=== PATIENT | male | born 1935 | race Caucasian/White ===

== ENCOUNTER 2020-01-10 09:46 | Emergency (ER) | payer MEDICARE, SELFPAY ==
--- NOTE | 2020-01-10 10:21 | ED.GENADULT ---
HPI - General Adult General Chief complaint: Urogenital-Male Stated complaint: blood in urine, occasional back pain Source: patient Mode of arrival: ambulatory Limitations: no limitations History of Present Illness HPI narrative: Dark blood in urine since 7 AM. Denies abdominal pain, dysuria, urinary frequency, dribbling. Urinary stream is forceful at times, no change. Gradual wt. loss over the past 2 years, no recent change. No hx of bruising. Takes clopidogrel daily. Recurrent right flank pain, occurs about 3 AM for the last 3-4 weeks. Gone throughout the day. Denies dysuria, urgency, frequency. No hx of kidney stones. Related Data Home Medications Medication Instructions Recorded Confirmed aspirin [Adult Low Dose Aspirin] 81 mg PO DAILY 01/10/20 01/10/20 atorvastatin 40 mg PO HS 01/10/20 01/10/20 clopidogrel 75 mg PO DAILY 01/10/20 01/10/20 coQ10 (ubiquinol) 200 mg PO DAILY 01/10/20 01/10/20 losartan 25 mg PO HS 01/10/20 01/10/20 omeprazole 20 mg PO DAILY 01/10/20 01/10/20 Allergies Allergy/AdvReac Type Severity Reaction Status Date / Time No Known Allergies Allergy Verified 01/10/20 10:30 Review of Systems Constitutional: Constitutional: Denies chills, Denies fever(s) and Denies weakness ENT: Reports sore throat Comments: no dysphagia Cardiovascular: Cardiovascular: Denies chest pain, Denies rapid heart rate and Denies slow heart rate Respiratory: Respiratory: Denies cough and Denies dyspnea Gastrointestinal: Gastrointestinal: Denies abdominal pain, Denies nausea and Denies vomiting Comments: Stools have had a weird appearance at times this past week. No melena. 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 Resolves. with rest. Endocrine: Endocrine: Denies polyuria Hematologic/Lymphatic: Hematologic/Lymphatic: Denies easy bleeding PMFSH Past Medical History Medical History (Updated 01/10/20 @ 11:38 by Tayo Gamino MD) GERD (gastroesophageal reflux disease) Hypertension Myocardial infarction Social History Social History Smoking status: Never smoker Gender identity (if verbalized by the patient): Female Exam Const: General: healthy appearing Orientation/consciousness: patient oriented x3 Limitations: no limitations HENMT: Head: normal to inspection Mouth: Yes Normal oral and palatal mucosa present Throat: posterior oropharynx normal Eyes: EOM: EOMs intact bilaterally Neck: Neck: no lymphadenopathy Chest: Chest palpation & inspection: normal inspection of the chest Resp: Auscultation: clear to auscultation bilaterally Cardio: Rhythm: regular rhythm GI: GI Palp: No Tenderness to palpation present (GI), No Guarding due to palpation present (GI), No Rigid due to palpation and No Palpable mass present Rectal Exam: No fecal impaction and hemorrhoids Other: : General: No bladder normal to palpation and Yes no CVA tenderness Testes: epididymides normal, no testicular swelling and no testicular tenderness Other: Prostate is symmetrically enlarged, smooth, no masses. Back/Spine/Pelvis: Back: no CVA tenderness Other: Points to left lateral flank where pain occurs, non-tender on exam. Skin: Rashes: no rashes Neuro: General: patient oriented x3 Extrem: General: normal to inspection Course Course Emergency Course: UTI with hematuria, on clopidogrel. In view of gross hematuria I'm concerned about persistent bleeding. Therefore, stop clopidogral until blood in urine resolves. See instructions. Losartan + Bactrim can interact, causing hyperkalemia. Pt's K is normal with adequate GFR. Will tx with Bactrim x 7 days. Vital Signs Vital signs: Vital Signs Temperature 36.7 C
[2020-01-10 10:22] VITALS: BP 111/65; PULSE 58; RESP 22; TEMP 36.7; O2SAT 100
--- NOTE | 2020-01-10 10:51 | PC.NURSE ---
Report to OLIVA Li
[2020-01-10 10:53] LABS: Basophils Absolute Auto 0.04 K/mm3 (0.00-0.10); Basophils Percent Auto 0.9 % (0.0-1.0); Eosinophils Percent Auto 4.3 % (1.0-6.0); Hematocrit 41.8 % (37.0-46.0); Hemoglobin 13.8 g/dL (12.4-15.3); Lymphocytes Absolute Auto 1.22 K/mm3 (1.10-4.50); Lymphocytes Percent Auto 26.1 % (18.0-42.0); Mean Corpuscular Hemoglobin 29.9 pg (27.0-31.0); Mean Corpuscular Volume 90.7 fL (78.0-102.0); Monocytes Absolute Auto 0.49 K/mm3 (0.10-0.90); Monocytes Percent Auto 10.5 % (2.0-11.0); Neutrophils Absolute Auto 2.7 K/mm3 (1.7-7.2); Neutrophils Percent Auto 58.2 % (50.0-70.0); Platelet Count Result 186 K/mm3 (150-420); Red Blood Count 4.61 M/mm3 (4.70-6.10); Red Cell Distribution Width 13.4 % (11.6-14.4); White Blood Count 4.7 K/mm3 (4.8-10.8)
[2020-01-10 10:56] LABS: Add Urine Microscopic? YES; Appearance Urine Cloudy (Clear); Bilirubin Urine 1+ (Negative); Blood Urine 3+ (Negative); Color Urine Red (Yellow); Glucose Urine UA Trace (Negative); Ketones Urine 1+ (Negative); Leukocyte Esterase Ur 2+ (Negative); Nitrate Urine Positive (Negative); Protein Urine 3+ (Negative); Urobilinogen Urine >=8.0 mg/dL (0.2-1.0); pH Urine 6.5 (5.0-8.0)
[2020-01-10 11:03] LABS: Bacteria Urine 1+ /hpf; RBC Urine >75 /hpf (0-2); WBC Urine 21-30 /hpf (0-3)
--- NOTE | 2020-01-10 11:04 | PC.NURSE ---
PT. RESTING ON STREACHER. APPEARS IN NO DISTRESS.
[2020-01-10 11:05] LABS: Prothrombin Time 10.7 Seconds (9.64-11.0)
[2020-01-10 11:14] LABS: Alanine Aminotransferase 22 U/L (16-63); Albumin Level 3.6 g/dL (3.4-5.0); Alkaline Phosphatase 88 U/L (46-116); Anion Gap 10.5 mmol/L (7-16); Aspartate Amino Transferase 22 U/L (15-37); Bilirubin,Total 0.7 mg/dL (0.00-1.00); Blood Urea Nitrogen 27 mg/dL (7-18); Calcium 8.4 mg/dL (8.5-10.1); Carbon Dioxide 28 mmol/L (21-32); Chloride 109 mmol/L (98-108); Estimated CRCL calculation 29 ml/min; Estimated Glomerular Filt Rate 42; Glucose 95 mg/dL (70-99); Osmolality Calculated 301 mOsm/kg (285-295); Potassium 4.5 mmol/L (3.5-5.1); Sodium 143 mmol/L (136-145); Total Protein 6.9 g/dL (6.4-8.2)
[2020-01-10 11:36] VITALS: BP 129/74; PULSE 53; RESP 18; O2SAT 97
[2020-01-10 11:40] VITALS: BP 159/79; PULSE 74; RESP 18; TEMP 36.8; O2SAT 96
== END 2020-01-10 11:38 | disposition home or self-care (01) ==
PROVIDERS: Emergency Provider Family Medicine; PCP Family Medicine
DX: N30.01 Acute cystitis with hematuria (principal); K21.9 Gastro-esophageal reflux disease without esophagitis; I10 Essential (primary) hypertension
CPT/HCPCS: 36415; 80053; 81001; 85025; 85610; 99283

== ENCOUNTER 2020-01-12 14:59 | Outpatient (CLI) | payer MEDICARE, SELFPAY ==
[2020-01-12 15:30] LABS: Add Urine Microscopic? NO; Appearance Urine Clear (Clear); Bilirubin Urine Negative (Negative); Blood Urine Negative (Negative); Color Urine Yellow (Yellow); Glucose Urine UA Negative (Negative); Ketones Urine Negative (Negative); Leukocyte Esterase Ur Negative (Negative); Nitrate Urine Negative (Negative); Protein Urine Negative (Negative); Specific Grav Ur 1.015 (1.010-1.020); Urobilinogen Urine 0.2 mg/dL (0.2-1.0); pH Urine 5.5 (5.0-8.0)
== END 2020-01-12 15:00 | disposition home or self-care (01) ==
LOC: CHSLAB 15:01
PROVIDERS: PCP Family Medicine; Visit Provider Family Medicine
DX: N30.91 Cystitis, unspecified with hematuria (principal)
CPT/HCPCS: 81003

== ENCOUNTER 2021-01-04 18:31 | Emergency (ER) | payer MEDICARE, SELFPAY ==
--- NOTE | ~2021-01-04 | CT_ITS ---
EXAMINATION: CTA brain carotid EXAM DATE: 01/04/2021 21:21 INDICATION: TIA? Dysphasia, confusion, increased forgetfulness. TECHNIQUE: Spiral CTA of the carotid arteries was performed with intravenous injection 100 cc of Om nipaque 350. Axial, coronal, sagittal reformatted images reviewed. Additional reformatted images cre ated on dedicated 3-D workstation. NASCET comparable standard used to assess the degree of arterial stenosis. Spiral CT angiogram cerebral arteries performed with the same intravenous injection of con trast. Source images of the brain CTA transferred to dedicated workstation for 3-D rotational image c reation. Coronal, sagittal maximum intensity pixel images also reviewed. The dose-length product (D LP) for this examination was 656.56 mGy-cm. The exposure was tailored according to patient size, an d iterative reconstruction (ASIR) was used as additional dose reduction technique. Correlation is mad e to noncontrast head CT earlier same date. FINDINGS: There is right carotid bulb atherosclerosis with 65% stenosis. The left carotid bulb has mi ld atherosclerosis with without carotid stenosis. The left vertebral artery is dominant. There is no carotid or vertebral basilar arterial dissection or fibromuscular dysplasia. There are no cerebral a rtery aneurysms. There is symmetric cerebral artery arborization. The sagittal, transverse and sigmoi d sinuses enhance normally, no venous sinus thrombosis. Internal cerebral veins also enhance normally . IMPRESSION: 1. No cervical arterial dissection or cerebral artery aneurysm. 2. Right carotid bulb 65% stenosis. 3. Left carotid bulb 0% stenosis. Reviewed, dictated and finalized at location A. ARCH STATISTICIAN
--- NOTE | ~2021-01-04 | CT_ITS ---
EXAMINATION: CT brain wo con EXAM DATE: 01/04/2021 19:00 INDICATION: altered LOC- speech impairment, dysphasia, confusion, increased forgetfulness. TECHNIQUE: Spiral CT of the head was performed without contrast. Axial, coronal and sagittal images were reviewed. The dose-length product (DLP) for this examination was 605.33 mGy-cm. The exposure w as tailored according to patient size, and iterative reconstruction (ASIR) was used as additional dos e reduction technique. Comparison is made to prior examination from 04/13/2010. FINDINGS: There is no acute intraparenchymal hemorrhage. No evidence of intraparenchymal brain mass lesion. No evidence of acute infarction. Please note that initial head CT has limited sensitivity f or small or acute infarctions. 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 There is moderate periventri cular and subcortical hypodensity, nonspecific but probably related to small vessel ischemic disease. There is moderate prominence of the sulci and ventricles related to cerebral atrophy. There is i ntracranial carotid arteriosclerosis. There are no extra-axial collections. There is no mass effect or midline shift. Patient has had bilateral ocular lens surgery. Soft tissue is unremarkable. The visualized sinuses and mastoid air cells are well aerated. IMPRESSION: 1. No acute intracranial findings. 2. Chronic age related findings. 3. 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 Reviewed, dictated and finalized at location A. ET DUPLICATING MACHINE OPERATOR
[2021-01-04 18:35] VITALS: BP 161/81; PULSE 67; RESP 16; O2SAT 100
--- NOTE | 2021-01-04 18:39 | ECG_ITS ---
Measurements Intervals [place] Rate: 62 P: -25 [place]: 120 QRS: -57 QRSD: 136 T: 22 QT: 563 QTc: 575 Interpretive Statements SINUS RHYTHM IVCD- CONSIDER ATYPICAL LBBB DELAYED PRECORDIAL R/S TRANSITION BASELINE ARTIFACT- V3-V6 ABNORMAL ECG Electronically Signed On 01-05-2021 7:30:08 DIGITAL ASSET COORDINATOR by Salvatore Underwood D.O.
--- NOTE | 2021-01-04 18:46 | ED.NEUROSD ---
HPI - Neuro Symptoms/Deficit General Chief Complaint: Neuro Symptoms/Deficit Stated Complaint: Possible stroke Source: patient and family Mode of arrival: ambulatory Limitations: clinical condition (having trouble finding his words) History of Present Illness HPI Narrative: About 1 hour ago pt was noted to be speaking gibberish . He states he hasnt been feeling the best for a while, and thinks he has had trouble remembering for a month or more. This onset was while he was eating dinner with his . Grandson said he has been really stressed out recently, and has been trying to get ahold of his supervisor [employer], and wants to get in and see Dr. Cottrell. Onset (ago): hour(s) (1) Timing confirmed by: family member Location: speech History of same: No Relieving factors: none Exacerbating factors: none Context: sudden onset Associated symptoms: confusion and chest pain (has an episode of cp last week sometime, but it resolved on its own) Related Data Home Medications Medication Instructions Recorded Confirmed aspirin [Adult Low Dose Aspirin] 81 mg PO DAILY 01/10/20 01/10/20 coQ10 (ubiquinol) 200 mg PO DAILY 01/10/20 01/10/20 Allergies Allergy/AdvReac Type Severity Reaction Status Date / Time No Known Allergies Allergy Verified 01/12/20 12:08 Review of Systems Review of Systems: All systems reviewed & are unremarkable except as noted in HPI and below Constitutional: Constitutional: Reports no additional constitutional complaints Eyes: Eyes: Reports no additional eye complaints ENT: Reports system reviewed and no additional complaints, except as documented Cardiovascular: Cardiovascular: Reports no additional cardiovascular complaints Respiratory: Respiratory: Reports no additional respiratory complaints Gastrointestinal: Gastrointestinal: Reports no additional gastrointestinal complaints Musculoskeletal: Musculoskeletal: Reports no additional musculoskeletal complaints Neurologic: Reports as per HPI and Reports confusion Psychiatric: Psychiatric: Reports no additional psychiatric complaints and Reports anxiety Comments: pt is somewhat tearful Endocrine: Endocrine: Reports no additional endocrine complaints Hematologic/Lymphatic: Hematologic/Lymphatic: Reports no additional hematologic/lymphatic complaints Allergic/Immunologic: Allergic/Immunologic: Reports no additional allergic/immunologic complaints [facility] Past Medical History Medical History CAD (coronary artery disease) GERD (gastroesophageal reflux disease) Hypertension Myocardial infarction Surgical History Surgical History History of coronary artery stent placement Hx of cataract surgery Social History Social History (Updated 01/04/21 @ 18:50 by Verena Carroll MD) Smoking status: Never smoker Alcohol intake: never Substance use: never Living arrangements: with family Gender identity (if verbalized by the patient): Female Exam Const: General: no acute distress and alert Orientation/consciousness: patient oriented x3 Other: having trouble getting his words out. HENMT: Head: normal to inspection Eyes: Conjunctivae: conjunctivae normal Pupils: Equal, round and reactive pupils present Neck: Neck: normal visual inspection Chest: Chest palpation & inspection: normal inspection of the chest Resp: Effort & Inspection: normal respiratory effort Auscultation: clear to auscultation bilaterally Cardio: Rate: regular rate GI: GI Palp: Yes Soft to palpation and No Tenderness to palpation present (GI) Auscultation: normal bowel sounds Back/Spine/Pelvis: Back: no CVA tenderness Skin: General skin exam: normal color Rashes: no rashes Neuro: General: patient oriented x3 and moves all extremities Other: getting out words does seem hard for him, it takes him a long time to get out his thoughts Extrem:
[2021-01-04 19:05] LABS: Basophils Absolute Auto 0.05 K/mm3 (0.00-0.10); Basophils Percent Auto 0.8 % (0.0-1.0); Eosinophils Absolute Auto 0.22 K/mm3 (0.02-0.50); Eosinophils Percent Auto 3.3 % (1.0-6.0); Immature Granulocyte Absolute 0.02 K/mm3 (0.00-0.00); Immature Granulocyte Percent A 0.3 % (0.0-0.0); Lymphocytes Absolute Auto 2.37 K/mm3 (1.10-4.50); Lymphocytes Percent Auto 35.9 % (18.0-42.0); Mean Corpuscular HGB Conc 33.3 g/dL (32.0-36.0); Mean Corpuscular Hemoglobin 29.5 pg (27.0-31.0); Mean Corpuscular Volume 88.6 fL (78.0-102.0); Mean Platelet Volume 10.7 fl (8.7-11.0); Monocytes Absolute Auto 0.56 K/mm3 (0.10-0.90); Monocytes Percent Auto 8.5 % (2.0-11.0); Neutrophils Absolute Auto 3.4 K/mm3 (1.7-7.2); Neutrophils Percent Auto 51.2 % (50.0-70.0); Platelet Count Result 223 K/mm3 (150-420); Red Blood Count 4.74 M/mm3 (4.70-6.10); Red Cell Distribution Width 12.8 % (11.6-14.4); White Blood Count 6.6 K/mm3 (4.8-10.8)
[2021-01-04 19:19] LABS: INR 1.1; Partial Thromboplastin Time 26.7 SEC (23.90-30.70); Prothrombin Time 11.2 Seconds (9.50-12.10)
[2021-01-04 19:26] LABS: Alanine Aminotransferase 19 U/L (16-63); Albumin Level 3.7 g/dL (3.4-5.0); Alkaline Phosphatase 83 U/L (46-116); Anion Gap 10 mmol/L (8-16); Aspartate Amino Transferase 14 U/L (15-37); Bilirubin,Total 0.7 mg/dL (0.00-1.00); Blood Urea Nitrogen 32 mg/dL (7-18); Calcium 8.8 mg/dL (8.5-10.1); Carbon Dioxide 25 mmol/L (21-32); Chloride 105 mmol/L (98-108); Estimated Glomerular Filt Rate 41; Glucose 112 mg/dL (70-99); Osmolality Calculated 297 mOsm/kg (285-295); Potassium 3.9 mmol/L (3.5-5.1); Sodium 140 mmol/L (136-145); Total Protein 6.9 g/dL (6.4-8.2)
[2021-01-04 20:08] LABS: Glucose Point of Care 112 (65-105)
--- NOTE | 2021-01-04 20:15 | PC.NURSE ---
pt resting per cot with grandson at the bedside. no complaints voiced. urine collected and sent to lab
[2021-01-04 20:18] LABS: Add Urine Microscopic? NO; Appearance Urine Clear (Clear); Bilirubin Urine Negative (Negative); Blood Urine Negative (Negative); Color Urine Yellow (Yellow); Glucose Urine UA Negative (Negative); Ketones Urine Negative (Negative); Leukocyte Esterase Ur Negative LEU/UL (Negative); Nitrate Urine Negative (Negative); Protein Urine Negative (Negative); Specific Grav Ur >= 1.030 (1.010-1.020); Urobilinogen Urine 0.2 mg/dL (0.2-1.0); pH Urine 5.5 (5.0-8.0)
[2021-01-04 20:35] LABS: SARS-CoV-2 Ag Negative (Negative)
--- NOTE | 2021-01-04 20:38 | PC.NURSE ---
dr griffiths talking with dr ewing at [facility].
[2021-01-04 21:43] VITALS: BP 143/83; PULSE 61; RESP 20; TEMP 37.1; O2SAT 98
== END 2021-01-04 21:51 | disposition home or self-care (01) ==
PROVIDERS: Emergency Provider Emergency Medicine; PCP Family Medicine
DX: G45.9 Transient cerebral ischemic attack, unspecified (principal); I25.10 Atherosclerotic heart disease of native coronary artery without angina pectoris; K21.9 Gastro-esophageal reflux disease without esophagitis; I10 Essential (primary) hypertension
CPT/HCPCS: 36415; 70450; 70496; 70498; 80053; 81003; 82948; 84484; 85025; 85610; 85730; 87426; 93005; 99283; 99284; C9803; Q9967

== ENCOUNTER 2021-04-22 13:14 | Emergency (ER) | payer MEDICARE, SELFPAY ==
--- NOTE | ~2021-04-22 | XR_ITS ---
EXAMINATION: XR chest 1V portable DATE: 04/22/2021 14:30 INDICATION: Right lower extremity weakness TECHNIQUE: frontal view of the chest was obtained. COMPARISON: Chest radiograph dated 06/06/2018 FINDINGS: The lungs are clear with no focal airspace opacities, pulmonary edema, pleural effusion or pneumothor ax. Heart size is normal. Tortuous thoracic aorta. Mild lumbar dextrocurvature. Moderate to severe th oracolumbar spondylosis. 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 Mild left and moderate right glenohumeral osteoa rthritis. IMPRESSION: 1. No acute cardiopulmonary disease. Reviewed, dictated and finalized at location A.
--- NOTE | ~2021-04-22 | CT_ITS ---
EXAMINATION: CT brain wo con EXAM DATE: 04/22/2021 14:12 INDICATION: RLE weakness, numbness; poss TIA 4mo ago. TECHNIQUE: Spiral CT of the head was performed without contrast. Axial, coronal and sagittal images were reviewed. The dose-length product (DLP) for this examination was 605.33 mGy-cm. The exposure w as tailored according to patient size, and iterative reconstruction (ASIR) was used as additional dos e reduction technique. Comparison is made to prior examination from 01/04/2021. FINDINGS: There is no acute intraparenchymal hemorrhage. No evidence of intraparenchymal brain mass lesion. No evidence of acute infarction. Please note that initial head CT has limited sensitivity f or small or acute infarctions. 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 Old small right frontal lob e cortical infarction. There is moderate periventricular and subcortical hypodensity, nonspecific but probably related to small vessel ischemic disease. There is moderate prominence of the sulci and v entricles related to cerebral atrophy. There is intracranial carotid arteriosclerosis. There are n o extra-axial collections. There is no mass effect or midline shift. Patient has had bilateral ocul ar lens surgery. Soft tissue is unremarkable. The visualized sinuses and mastoid air cells are well aerated. IMPRESSION: 1. No acute intracranial findings. 2. Chronic age related findings. 3. Small old infarctions. Reviewed, dictated and finalized at location B.
[2021-04-22 13:20] VITALS: BP 142/79; PULSE 62; RESP 14; TEMP 36.4; O2SAT 99
--- NOTE | 2021-04-22 13:59 | ECG_ITS ---
Measurements Intervals [place] Rate: 60 P: 39 [place]: 175 QRS: -55 QRSD: 138 T: -27 QT: 427 QTc: 427 Interpretive Statements SINUS RHYTHM VENTRICULAR PREMATURE COMPLEX IVCD- CONSIDER ATYPICAL LBBB BASELINE WANDER- V3, V5 ABNORMAL ECG Electronically Signed On 04-22-2021 14:55:51 CDT by Salvatore Underwood D.O.
[2021-04-22 14:15] LABS: Basophils Absolute Auto 0.04 K/mm3 (0.00-0.10); Basophils Percent Auto 0.7 % (0.0-1.0); Eosinophils Absolute Auto 0.21 K/mm3 (0.02-0.50); Eosinophils Percent Auto 3.5 % (1.0-6.0); Hematocrit 42.2 % (37.0-46.0); Hemoglobin 13.7 g/dL (12.4-15.3); Immature Granulocyte Absolute 0.01 K/mm3 (0.00-0.00); Immature Granulocyte Percent A 0.2 % (0.0-0.0); Lymphocytes Absolute Auto 1.78 K/mm3 (1.10-4.50); Lymphocytes Percent Auto 29.8 % (18.0-42.0); Mean Corpuscular HGB Conc 32.5 g/dL (32.0-36.0); Mean Corpuscular Hemoglobin 29.6 pg (27.0-31.0); Mean Corpuscular Volume 91.1 fL (78.0-102.0); Mean Platelet Volume 10.8 fl (8.7-11.0); Monocytes Percent Auto 10.1 % (2.0-11.0); Neutrophils Absolute Auto 3.3 K/mm3 (1.7-7.2); Neutrophils Percent Auto 55.7 % (50.0-70.0); Platelet Count Result 185 K/mm3 (150-420); Red Blood Count 4.63 M/mm3 (4.70-6.10); Red Cell Distribution Width 13.3 % (11.6-14.4)
[2021-04-22 14:25] LABS: Glucose Point of Care 105 mg/dl (65-105)
[2021-04-22 14:30] LABS: Partial Thromboplastin Time 26.9 SEC (23.90-30.70); Prothrombin Time 10.9 Seconds (9.50-12.10)
[2021-04-22 14:33] LABS: Alanine Aminotransferase 25 U/L (16-63); Albumin Level 3.4 g/dL (3.4-5.0); Alkaline Phosphatase 93 U/L (46-116); Anion Gap 9 mmol/L (8-16); Aspartate Amino Transferase 15 U/L (15-37); Bilirubin,Total 0.5 mg/dL (0.00-1.00); Blood Urea Nitrogen 23 mg/dL (7-18); Calcium 8.6 mg/dL (8.5-10.1); Carbon Dioxide 27 mmol/L (21-32); Chloride 107 mmol/L (98-108); Estimated CRCL calculation 29 ml/min; Estimated Glomerular Filt Rate 43; Glucose 106 mg/dL (70-99); Osmolality Calculated 299 mOsm/kg (285-295); Potassium 4.1 mmol/L (3.5-5.1); Sodium 143 mmol/L (136-145); Total Protein 6.6 g/dL (6.4-8.2); Troponin I 12.8 ng/L (0.00-60.4)
--- NOTE | 2021-04-22 15:19 | PC.NURSE ---
1430 dr. ramos office contacted. awaiting call back. 1505 dr. romero called erp. consult provided. 15[facility], [place], contacted. awaiting call back for transfer.
--- NOTE | 2021-04-22 15:43 | ED.NEUROSD ---
HPI - Neuro Symptoms/Deficit General Chief Complaint: Extremity Problem,Nontraumatic Stated Complaint: numb R hip down to foot Time Seen by Provider: 04/22/21 13:50 Source: patient and family Mode of arrival: ambulatory Limitations: no limitations History of Present Illness HPI Narrative: 85-year-old man with a history of TIA comes emergency department complaining of right leg weakness and numbness that started approximately 12:30 p.m. today. Patient states that he had just taken his home from eye appointment when he had sudden-onset weakness and difficulty walking. States that he had no pain, radiating pain, tingling, or falls. He denies headache, nausea, vomiting, chest pain or shortness of breath. He denies prior similar symptoms. He presented in December to our emergency department with garbled speech which resolved prior to discharge. He takes Plavix daily. Related Data Home Medications Medication Instructions Recorded Confirmed coQ10 (ubiquinol) 200 mg PO DAILY 01/10/20 04/22/21 acetaminophen 500 mg PO Q6H PRN 01/04/21 04/22/21 diphenhydramine HCl [Allergy 25 mg PO HS PRN 01/04/21 04/22/21 (diphenhydramine)] Allergies Allergy/AdvReac Type Severity Reaction Status Date / Time No Known Allergies Allergy Verified 01/12/20 12:08 Review of Systems Review of Systems: All systems reviewed & are unremarkable except as noted in HPI and below Constitutional: Constitutional: Denies chills and Denies fever(s) Eyes: Eyes: Denies change in vision and Denies photophobia ENT: Denies nasal congestion and Denies sore throat Cardiovascular: Cardiovascular: Denies chest pain and Denies radiating jaw, neck or arm pain Respiratory: Respiratory: Denies cough, Denies dyspnea and Denies wheezing Gastrointestinal: Gastrointestinal: Denies abdominal pain, Denies diarrhea, Denies nausea and Denies vomiting Genitourinary: Genitourinary: Denies hematuria, Denies dysuria and Denies urinary frequency Musculoskeletal: Musculoskeletal: Reports back pain ( Frequent), Denies arthralgias and Denies joint swelling Integumentary/Breasts: Skin/Breast: Denies pruritus, Denies erythema and Denies rash Neurologic: Denies vertigo, Denies dizziness and Denies syncope Hematologic/Lymphatic: Hematologic/Lymphatic: Denies easy bleeding and Denies easy bruising Allergic/Immunologic: Allergic/Immunologic: Denies lip swelling and Denies throat swelling [facility] Past Medical History Medical History Brain TIA CAD (coronary artery disease) GERD (gastroesophageal reflux disease) Hypertension Myocardial infarction Urinary tract infection Surgical History Surgical History History of coronary artery stent placement Hx of cataract surgery Social History Social History Smoking status: Never smoker Alcohol intake: never Substance use: never Gender identity (if verbalized by the patient): Female Exam Const: General: healthy appearing, no acute distress and alert Orientation/consciousness: patient oriented x3 Limitations: no limitations HENMT: Head: normal to inspection Ears: external ears normal, TM's normal bilaterally and EAC's normal General nose exam: Normal nares present Face and sinus: normal facial exam Mouth: Yes moist mucous membranes Throat: posterior oropharynx normal Eyes: Conjunctivae: conjunctivae normal Pupils: Equal, round and reactive pupils present EOM: EOMs intact bilaterally Resp: Effort & Inspection: normal respiratory effort and not labored Auscultation: clear to auscultation bilaterally, no rales, no rhonchi and no wheezes Cardio: Rate: regular rate Rhythm: regular rhythm Heart sounds: Murmur heart sound present systolic GI: GI Palp: Yes Soft to palpation, No Tenderness to palpation present (GI) and No Palpable mass present Skin
--- NOTE | 2021-04-22 16:04 | PC.NURSE ---
1529 dr. sawant hospitalist at [facility] accepts patient. awaiting call back and room placement
[2021-04-22 16:07] LABS: Add Urine Microscopic? YES; Appearance Urine Clear (Clear); Bilirubin Urine Negative (Negative); Blood Urine Negative (Negative); Color Urine Yellow (Yellow); Glucose Urine UA Negative (Negative); Ketones Urine Negative (Negative); Leukocyte Esterase Ur Negative LEU/UL (Negative); Nitrate Urine Negative (Negative); Protein Urine Trace (Negative); Specific Grav Ur 1.025 (1.010-1.020); Urobilinogen Urine 0.2 mg/dL (0.2-1.0)
[2021-04-22 16:13] LABS: Bacteria Urine Trace /hpf; Mucus Urine Few /lpf; RBC Urine 0-2 /hpf (0-2); Squamous Epithelial Cell Urine Rare /hpf (Few); WBC Urine 0-3 /hpf (0-3)
[2021-04-22 16:45] VITALS: BP 135/71; PULSE 60; RESP 15; O2SAT 99
== END 2021-04-22 16:50 | disposition short-term general hospital (02) ==
PROVIDERS: Emergency Provider Emergency Medicine; PCP Family Medicine
DX: I63.9 Cerebral infarction, unspecified (principal); I25.10 Atherosclerotic heart disease of native coronary artery without angina pectoris; K21.9 Gastro-esophageal reflux disease without esophagitis; I10 Essential (primary) hypertension
CPT/HCPCS: 36415; 70450; 71045; 80053; 81001; 82948; 84484; 85025; 85610; 85730; 93005; 99285

== ENCOUNTER 2021-04-26 15:36 | Outpatient (CLI) | payer MEDICARE, SELFPAY ==
[2021-04-26 16:27] LABS: Anion Gap 11 mmol/L (8-16); Blood Urea Nitrogen 26 mg/dL (7-18); Calcium 8.6 mg/dL (8.5-10.1); Carbon Dioxide 25 mmol/L (21-32); Chloride 106 mmol/L (98-108); Estimated Glomerular Filt Rate 43; Glucose 129 mg/dL (70-99); Osmolality Calculated 300 mOsm/kg (285-295); Potassium 4.4 mmol/L (3.5-5.1); Sodium 142 mmol/L (136-145)
== END 2021-04-26 15:37 | disposition home or self-care (01) ==
LOC: CHSLAB 15:38
PROVIDERS: PCP Family Medicine; Visit Provider Family Medicine
DX: G45.9 Transient cerebral ischemic attack, unspecified (principal)
CPT/HCPCS: 36415; 80048

== ENCOUNTER 2021-04-29 09:56 | Outpatient (CLI) | payer MEDICARE, SELFPAY ==
--- NOTE | 2021-04-29 10:00 | ECHO_ITS ---
Patient Info Name: Cuauhtemoc Vincent Age: 85 years : 1935 Gender: Male Ht: 67 in Wt: 155 lbs BSA: 1.83 m2 HR: 63 bpm BP: 155 / 80 mmHg Heart Rhythm: Sinus Rhythm Technical Quality: Good Exam Date: 04/29/2021 10:15 AM Exam Location: [facility] Patient Status: Outpatient Admit Date: 04/29/2021 Staff Ordering Physician: Yevgeniy Saeed DO Restaurant Culinary Manager: Jesi Al RDCS Attending Provider: Yevgeniy Saeed DO Referring Physician: Christophe PETERSON; Exam Type: CA echo doppler w bubble study Study Info Indications G45.9 - Transient cerebral ischemic attack, unspecified Complete two-dimensional, color flow and Doppler transthoracic echocardiogram is performed with agitated saline. Strain analysis performed. History/Risk Factors Hypertension: Yes Dyslipidemia: Yes Congenital Heart Disease (CHD): No Peripheral Arterial Disease (PAD): No Myocardial Infarction (SD): Yes Chronic Lung Disease: No Obesity: No Renal Disease: No Coronary Artery Disease (CAD) No Congestive Heart Failure (CHF): No Cardiomyopathy/LV Systolic Dysfunction: No Diabetes Mellitus: No COPD: No Tobacco Use: Never Cerebrovascular Disease: Yes Deep Vein Thrombosis (DVT): None Dialysis: None Frailty Scale (CSHA): 2: Well Summary 1. Left ventricular chamber dimension is normal. 2. Left ventricular systolic function is normal, estimated at 55-60%. 3. There is mildly increased left ventricular wall thickness. 4. The left ventricular diastolic function is grade I diastolic dysfunction. 5. E/e' 6 is not elevated. 6. Global longitudinal strain is abnormal at -13.1%. 7. Left atrial chamber dimension is mildly enlarged. 8. There is mild to moderate mitral valve regurgitation. 9. There is mild tricuspid valve regurgitation. 10. No pulmonary hypertension, estimated pulmonary arterial systolic pressure is 34 mmHg. 11. There is trace pulmonic regurgitation. Left Ventricle E/e' 6 is not elevated. Global longitudinal strain is abnormal at -13.1%. Left ventricular chamber dimension is normal. Left ventricular systolic function is normal, estimated at 55-60%. There is mildly increased left ventricular wall thickness. The left ventricular diastolic function is grade I diastolic dysfunction. Right Ventricle Right ventricular systolic function is normal and with normal TAPSE 2.4 cm. Right ventricular chamber dimension is normal. Left Atria Left atrial chamber dimension is mildly enlarged. Right Atria Right atrial chamber dimension is normal. Atrial Septum Agitated saline injection with and without valsalva maneuver without obvious interatrial shunt. Intact interatrial septum visualized by agitated saline imaging. Aortic Valve The aortic valve is trileaflet. There is no aortic valve stenosis. There is no aortic valve regurgitation. Pulmonic Valve There is trace pulmonic regurgitation. Mitral Valve There is no mitral valve stenosis. There is mild to moderate mitral valve regurgitation. Tricuspid Valve There is mild tricuspid valve regurgitation. No pulmonary hypertension, estimated pulmonary arterial systolic pressure is 34 mmHg. Pericardium/Pleural There is no pericardial effusion. Inferior Vena Cava Normal inferior vena cava with >50% collapse upon inspiration consistent with normal right atrial pressure, 5 mmHg. Aorta The aortic root size at the sinus of Valsalva is no
== END 2021-04-29 09:57 | disposition home or self-care (01) ==
LOC: CHSIMG 09:57
PROVIDERS: PCP Family Medicine; Visit Provider Family Medicine
DX: G45.9 Transient cerebral ischemic attack, unspecified (principal)
CPT/HCPCS: 93306; 96375

== ENCOUNTER 2023-10-01 14:23 | Outpatient (CLI) | payer MEDICARE, SELFPAY ==
[2023-10-01 14:41] LABS: Basophils Absolute Auto 0.05 K/mm3 (0.00-0.10); Basophils Percent Auto 0.7 % (0.0-1.0); Eosinophils Absolute Auto 0.22 K/mm3 (0.02-0.50); Eosinophils Percent Auto 3.3 % (1.0-6.0); Hematocrit 45.1 % (37.0-46.0); Hemoglobin 14.5 g/dL (12.4-15.3); Immature Granulocyte Absolute 0.01 K/mm3 (0.00-0.00); Immature Granulocyte Percent A 0.1 % (0.0-0.0); Lymphocytes Absolute Auto 1.67 K/mm3 (1.10-4.50); Lymphocytes Percent Auto 24.7 % (18.0-42.0); Mean Corpuscular HGB Conc 32.2 g/dL (32.0-36.0); Mean Corpuscular Hemoglobin 29.5 pg (27.0-31.0); Mean Corpuscular Volume 91.9 fL (78.0-102.0); Mean Platelet Volume 11.8 fl (8.7-11.0); Monocytes Absolute Auto 0.63 K/mm3 (0.10-0.90); Monocytes Percent Auto 9.3 % (2.0-11.0); Neutrophils Absolute Auto 4.2 K/mm3 (1.7-7.2); Neutrophils Percent Auto 61.9 % (50.0-70.0); Platelet Count Result 189 K/mm3 (150-420); Red Blood Count 4.91 M/mm3 (4.70-6.10); Red Cell Distribution Width 13.3 % (11.6-14.4); White Blood Count 6.8 K/mm3 (4.8-10.8)
[2023-10-01 14:44] LABS: Appearance Urine Clear (Clear); Bilirubin Urine Negative (Negative); Blood Urine Negative (Negative); Color Urine Yellow (Yellow); Glucose Urine UA Negative (Negative); Ketones Urine Negative (Negative); Leukocyte Esterase Ur Negative (Negative); Nitrate Urine Negative (Negative); Protein Urine Trace (Negative); Specific Grav Ur >= 1.030 (1.010-1.020); Urobilinogen Urine 0.2 mg/dL (0.2-1.0)
[2023-10-01 15:02] LABS: Add Urine Microscopic? YES; Bacteria Urine Trace /hpf; Mucus Urine Few /lpf; RBC Urine 0-2 /hpf (0-2); Squamous Epithelial Cell Urine Few /hpf (Few); WBC Urine None seen /hpf (0-3)
[2023-10-01 15:24] LABS: Alanine Aminotransferase 25 U/L (16-63); Albumin Level 3.7 g/dL (3.4-5.0); Alkaline Phosphatase 113 U/L (46-116); Anion Gap 7 mmol/L (8-16); Aspartate Amino Transferase 46 U/L (15-37); Bilirubin,Total 0.8 mg/dL (0.00-1.00); Blood Urea Nitrogen 30 mg/dL (7-18); Carbon Dioxide 31 mmol/L (21-32); Chloride 104 mmol/L (98-108); Estimated Glomerular Filt Rate 38; Glucose 89 mg/dL (70-99); Iron 65 ug/dL (65-175); Magnesium 2.2 mg/dL (1.8-2.4); Osmolality Calculated 299 mOsm/kg (285-295); Potassium 4.7 mmol/L (3.5-5.1); Sodium 142 mmol/L (136-145)
[2023-10-08 18:11] LABS: Vitamin D 25 Hydroxy 27 ng/mL (30-100)
== END 2023-10-01 14:24 | disposition home or self-care (01) ==
LOC: CHSLAB 14:27
PROVIDERS: PCP Family Medicine; Visit Provider Nurse Practitioner Family
DX: D64.9 Anemia, unspecified (principal); R42 Dizziness and giddiness; Z79.899 Other long term (current) drug therapy
CPT/HCPCS: 36415; 80053; 81001; 82306; 83540; 83735; 85025

== ENCOUNTER 2023-10-04 08:28 | Outpatient (CLI) | payer MEDICARE, SELFPAY ==
--- NOTE | 2023-10-04 08:35 | ECG_ITS ---
Measurements Intervals [place] Rate: 60 P: 52 [place]: 153 QRS: -30 QRSD: 145 T: 262 QT: 441 QTc: 442 Interpretive Statements SINUS RHYTHM IVCD, CONSIDER ATYPICAL LBBB BASELINE ARTIFACT- I, V1, V4 ABNORMAL ECG COMPARED TO ECG 04/22/2021 14:09:59 NO SIGNIFICANT CHANGES Electronically Signed On 10-04-2023 9:09:29 BALLPOINT PEN CARTRIDGE TESTER by Salvatore Underwood D.O.
== END 2023-10-04 08:29 | disposition home or self-care (01) ==
PROVIDERS: PCP Family Medicine; Visit Provider Family Medicine
DX: R42 Dizziness and giddiness (principal); R94.31 Abnormal electrocardiogram [ECG] [EKG]
CPT/HCPCS: 93005

== ENCOUNTER 2025-01-27 08:59 | Outpatient (CLI) | payer MEDICARE, SELFPAY ==
[2025-01-27 09:25] LABS: Basophils Absolute Auto 0.05 K/mm3 (0.00-0.10); Basophils Percent Auto 0.8 % (0.0-1.0); Eosinophils Absolute Auto 0.12 K/mm3 (0.02-0.50); Hematocrit 40.5 % (37.0-46.0); Hemoglobin 13.1 g/dL (12.4-15.3); Immature Granulocyte Absolute 0.01 K/mm3 (0.00-0.00); Immature Granulocyte Percent A 0.2 % (0.0-0.0); Lymphocytes Absolute Auto 1.47 K/mm3 (1.10-4.50); Lymphocytes Percent Auto 24.7 % (18.0-42.0); Mean Corpuscular HGB Conc 32.3 g/dL (32-36); Mean Corpuscular Hemoglobin 29.4 pg (27.0-31.0); Mean Corpuscular Volume 90.8 fL (78.0-102.0); Mean Platelet Volume 10.1 fl (8.7-11.0); Monocytes Absolute Auto 0.55 K/mm3 (0.10-0.90); Monocytes Percent Auto 9.2 % (2.0-11.0); Neutrophils Absolute Auto 3.75 K/mm3 (1.70-7.20); Neutrophils Percent Auto 63.1 % (50.0-70.0); Platelet Count Result 258 K/mm3 (150-420); Red Blood Count 4.46 M/mm3 (4.70-6.10); Red Cell Distribution Width 12.9 % (11.6-14.4)
--- OUTSIDE RECORDS SUMMARY | 2025-01-27 09:38 | XMS_ITS ---
Author Organization Unknown Address [address] [place] [phone] Phone Care Team Providers Care Residential Sales Consultant Name Role Phone MIKY BIRAN Attending Unavailable PRESTON DEJESUS Primary Unavailable Immunization Immunization Date Status Additional Notes Code Code System COVID-19 vaccine, vector-nr, rS-Ad26, PF, 0.5 mL 01/22/2021 Completed 212 CVX Results US ECHO W/ COLOR - Completed : 04/17/2024 14:45 LOINC: See Scanned Image Attachment for Report Dictated By: Trans Initials: BG Trans Date: 04/21/24 10:28 <<REPDIST>> Social History Type Status Start Date End Date Code Code Syst em Smoking History Never smoker (Never Smoked) 651866118 SNOMED CT Sex Male Medications Medication Start Date End Date Route Frequency Dose Code Code System Medication Instructions Home Meds Omeprazole 20MG Oral Capsule, Delayed Release 03/21/2017 Unknown ORAL ONCE A DAY 1 CAPSULE 357017 RxNorm TAKE 1 CAPSULE ORAL ONCE A DAY Hospital Discharge Instructions Should you have any questions prior to discharge, please contact a member of your healthcare team. If you have left the hospital and have any questions, please contact your primary care physician. Reason For Referral No Data Found Allergies and Adverse Reactions Allergy Substance Reaction Severity Start Date Concern Status Co de Code System No Known Drug Allergies Active 793767144 SNOMED-CT Plan of Treatment US Echo With Color (81889) 04/17/2024 Encounters Encounter Diagnosis Start Date Code Code Sys tem Mitral valve regurgitation 04/17/2024 05160007 S NOMED-CT Personal Care Team Section Performer Name Performer Role Active Date Inactive Benigno Garcia PCP - Primary care physician 2024-03-06 2024-03-06 ANJELICA JOHNSTON PCP - Primary care physician 2024-03-21 0 Imaging Narrative Notes [facility] 04/21/2024 10:28 [place] [id number] [place], [place] [address] RADIOLOGY REPORT Patient Number: [id number] Patient Name: MARI MCKINNON Type: O/P MR Number: [id number] : 1935 Age: 88 Sex: M Room #: Admit Date: 04/17/24 Discharge Date 04/17/24 Ordering Physician: MIKY BRIAN Family Physician: PRESTON Gamez Physician: X-Ray Number : [id number] US ECHO W/ COLOR [id number] COMPLETE:04/17/24 14:45 APC [id number] (REASON-ECHO COMPLTE: MVR See Scanned Image Attachment for Report Dictated By: Sary Initials: BG [place] Date: 04/21/24 10:28 <<REPDIST>>
--- OUTSIDE RECORDS SUMMARY | 2025-01-27 09:38 | XMS_ITS | Encounter Summary ---
Author Organization [facility] Address [address] [place] [address] Care Team Providers Care Valve Steamer Name Role Phone Claudia Martinez APRN, COMPENSATION BUSINESS PARTNER-C Unavailable Yevgeniy Saeed DO Primary Care Provider [phone] Garcia Arnett MD Unavailable Unavailable Milka Mohamud MD Unavailable Unavailabl e Encounter Details Date Type Department Care Team (Late st Contact Info) Description 04/27/2021 Hospital Follow-up Call [facility] Neurology [address] [place] [address] Claudia Merritt, RN Social History Tobacco Use Types Packs/Day Years Used Date Smoking Tobacco: Former Cigarettes Smokeless Tobacco: Never Comments:patient doesnt smok e Alcohol Use Standard Drinks/Week Comments No 0 (1 standard drink = 0.6 oz pur e alcohol) PHQ-2 Answer Date Recorded PHQ-2 Score - If the patient scores above 3, please move on to questions 3-9 0 01/07/2021 Sex and Gender Information Value Date Recorded Sex Assigned at Not on file Legal Sex Male 7:35 PM CDT Gender Identity Not on file Sexual Orientation Not on file Occupation Industry Job Start Date Job End Date Not on file Not on file Not on file Not on file documented as of this encounter Functional Status * RETIRED Are you blind or do you have serious difficulty seeing, even when wearing glasses? Answer Date of Assessment Author Status No 04/22/2021 6:19 PM CDT Activ e * Do you have serious difficulty walking or climbing stairs? Answer Date of Assessment Author Status No 04/22/2021 6:19 PM CDT Silvia Hamilton RN Active * Do you have difficulty dressing or bathing? Answer Date of Assessment Author Status No 04/22/2021 6:19 PM CDT Silvia Hamilton RN Active * Because of a physical, mental, or emotional condition, do you have difficulty doing errands alone such as visiting a doctor's office or shopping? Answer Date of Assessment Author Status No 04/22/2021 6:19 PM CDT Silvia Hamilton RN Active documented as of this encounter Mental Status * Because of a physical, mental, or emotional condition, do you have serious difficulty concentrating, remembering, or making decisions? Answer Entry Date Author Status No 04/22/2021 6:19 PM CDT Silvia Hamilton RN Active documented in this encounter Plan of Treatment Upcoming Encounters Date Type Department Care Team (Late st Contact Info) Description 03/05/2025 8:45 AM CDT Office Visit [facility] [address] [phone] Haleigh Sal MD [address] [place] [address] documented as of this encounter Visit Diagnoses Not on filedocumented in this encounter Care Teams Valve Steamer Relationship Specialty Start Date End Date Yevgeniy Saeed DO [address] [place] [address] PCP - General FAMILY PRACTICE 08/04/20 Claudia Martinez APRN, COMPENSATION BUSINESS PARTNER-C [address] [facility] [address] [place] [address] [employer] Equipment Installer NURSE PRACTITIONER 06/06/18 Garcia Arnett MD [address] [place] [address] [employer] Equipment Installer INTERVENTIONAL CARDIOLOGY 08/13/20 09/02/23 Milka Mohamud MD [address] [place] [address] Consulting Physician CARDIOVASCULAR DISEASE 09/03/23 documented as of this encounter
--- OUTSIDE RECORDS SUMMARY | 2025-01-27 09:38 | XMS_ITS | Clinical Summary ---
Author Organization [facility] Address [address] [place] [address] Care Team Providers Care Air Launch Weapons Technician Name Role Phone Claudia Martinez APRN, DIESEL ENGINE SPECIALIST-C Unavailable Yevgeniy Saeed DO Primary Care Provider [phone] Milka Mohamud MD Unavailable Unavailabl e Allergies No known active allergies Medications nitroglycerin 0.[address] 1 tablet (0.4 mg total) under the tongue every 5 (five) minutes as needed for Chest Pain. 25 tablet 1 8 Active omeprazole 20 MG capsule Take 20 mg by mouth daily. Active Coenzyme Q10 200 MG Cap Take 1 capsule by mouth nightly at bedtime. 9 Active aspirin 81 MG chewable tablet Chew 1 tablet (81 mg total) by mouth daily for 30 days. 30 tablet 1 Active atorvastatin 40 MG tablet Take 1 tablet (40 mg total) by mouth nightly at bedtime for 30 days. 30 tablet 1 Active NIFEdipine XL (PROCARDIA-XL) 30 MG 24 hr tabletIndications: Nonrheumatic mitral valve regurgitation Take 1 tablet (30 mg total) by mouth daily. 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 STEMI (ST elevation myocardi al infarction) ([facility]) 05/27/2018 Hypertension Hyperlipidemia Resolved Problems Problem Noted Date Diagnosed Date Resolved Date LV dysfunction 10/27/2019 08/04/2020 Family History Medical History Relation Comments No Known Problems Brother Heart Attack Father No Known Problems Maternal Aunt No Known Problems Maternal Grandfather No Known Problems Maternal Grandmother No Known Problems Maternal Uncle No Known Problems Mother No Known Problems Paternal Aunt Heart Attack Paternal Grandfather No Known Problems Paternal Grandmother No Known Problems Paternal Uncle No Known Problems Sister Relation Status Comments Brother Father Maternal Aunt Maternal Grandfather Maternal Grandmother Maternal Uncle Mother Paternal Aunt Paternal Grandfather Paternal Grandmother Paternal Uncle Sister Social History Tobacco Use Types Packs/Day Years Used Date Smoking Tobacco: Former Cigarettes Smokeless Tobacco: Never Tobacco Cessation:Counseling Given: Not Answered Comments:patient doesnt smoke Alcohol Use Standard Drinks/Week Comments No 0 [...] file Not on file Not on file Last Filed Vital Signs Vital Sign Reading Time Taken Comments Blood Pressure 176/86 03/07/2024 2:18 PM CDT Pulse 55 03/07/2024 2:14 PM CDT Temperature 36.6 C (97.9 F) 04/23/2021 3:58 AM CDT Respiratory Rate 16 03/07/2024 2:14 PM CDT Oxygen Saturation 97% 03/07/2024 2:14 PM CDT Inhaled Oxygen Concentration - - Weight 68.9 kg (152 lb) 03/07/2024 2:14 PM CDT Height 170.2 cm (5' 7 ) 03/07/2024 2:14 PM CDT Body Mass Index 23.81 03/07/2024 2:14 PM CDT Plan of Treatment Upcoming Encounters Date Type Department Care Team (Late st Contact Info) Description 03/05/2025 8:45 AM CDT Office Visit [facility] [address] [phone] Haleigh Sal MD [address] [place], [place] [phone] Health Maintenance Due Date Last Done Comments ASCVD Statin 1935 Pneumococcal Vaccine: 65+ Years (1 of 2 - PCV) 1941 DTaP, Tdap and Td Vaccines ( 1 - Tdap) 1954 Zoster Vaccines (1 of 2) 1985 Annual Medicare Wellness Visit 2000 RSV Immunization or 60+ Years (1 - 1-dose 75+ series) 2010 ASCVD LDL 04/23/2022 04/23/2021, 10/13/2019, 05/28/2018 COVID-19 Vaccine (2 - 2023-2 5 season) 2024 01/22/2021 Influenza Adult (#1) 2024 Meningococcal B Vaccine Aged Out No l onger eligible based on patient's age to complete this topic Meningococcal Vaccine Aged Out No apoorva alena eligible based on patient's age to complete this topic RSV Immunizations Under 20 Months Aged Out No longer eligible b ased on patient's age to complete this topic Medical Devices Implanted Type Area Christmas Bell Ringer Device Identifier Shelf Expiration Date Model / Serial / Lot Stent Coronary 38mm 3.5mm - [id number] Implanted:2017 at [facility] (Quantity not on file) Stent Coronary JOHN [employer] [id number] Procedures Procedure Name Priority Date/Time Associated Diagnosis Comments LIPID PANEL Routine 04/23/2021 5:06 AM CDT from Last 3 Months or Most Recently Relevant to Health Maintenance Results * LIPID PANEL (04/23/2021 5:06 AM CDT) CHOLESTEROL 119 MG/DL 04/23/2021 10:48 AM CDT [facility] Comment:DESIRABLE: <200 TRIGLYCERIDES 49 MG/DL 04/23/2021 10:48 AM CDT [facility] Comment:<150 NORMAL HDL 50 >39 MG/DL 04/23/2021 10:48 AM CDT [facility] LDL (CALCULATED) 59 MG/DL 04/23/20 10:48 AM CDT [facility] Comment:<100 OPTIMAL VLDL CALCULATION 10 MG/DL 04/23/20 10:48 AM CDT [facility] Comment:REFERENCE RANGE NOT ESTABLISHED CHOL/HDL RATIO 2.4 04/23/2021 10:48 AM CDT [facility] Comment:REFERENCE RANGE NOT ESTABLISHED LDL/HDL 1.2 04/23/2021 10:48 AM CDT [facility] Comment:REFERENCE RANGE NOT ESTABLISHED NON HDL CHOLESTEROL 69 MG/DL 04/23/2021 10:48 AM CDT [facility] Comment:REFERENCE RANGE NOT ESTABLISHED 04/23/2021 5:06 AM CDT us Shai Knutson MD LABORATORY Final Resul t [facility] [address] [place] [address], [phone] from Last 3 Months or Most Recently Relevant to Health Maintenance Insurance [facility] Advance Directives * Full Code (Latest Code Status on File) Date Activated Date Inactivated Comments 04/22/2021 6:06 PM 04/23/2021 9:02 PM * Full Code Date Activated Date Inactivated Comments 05/27/2018 9:38 PM 05/29/2018 2:09 PM Care Teams Air Launch Weapons Technician Relationship Specialty Start Date End Date Yevgeniy Saeed DO [address] [place] [address] PCP - General FAMILY PRACTICE 08/04/20 Claudia Martinez APRN, DIESEL ENGINE SPECIALIST-C [address] [facility] [address] [place] [address] [place] Project Admin NURSE PRACTITIONER 06/06/18 Milka Mohamud MD [address] [place] [address] Consulting Physician CARDIOVASCULAR DISEASE 09/03/23
--- OUTSIDE RECORDS SUMMARY | 2025-01-27 09:38 | XMS_ITS ---
Care Plan - [facility] Created on: January 27, 2025 LUAN GUERRA : 1935 Sex: Male Author Organization [facility] Address [address] [place] [address] Phone Care Team Providers Care Appliquer Name Role Phone Unavailable Unavailable Unavailable
--- OUTSIDE RECORDS SUMMARY | 2025-01-27 09:38 | XMS_ITS | Clinical Summary ---
Author Organization [facility] Address [address] [place] [address] Phone Care Team Providers Care Wharf Tender Helper Name Role Phone Unavailable Unavailable Unavailable Reason for Visit and Chief Complaint GENERAL OFFICE VISIT Plan of Treatment No Plan of Treatment Recorded Assessments Includes: Assessments from this encounter No Assessments Recorded Medical Equipment - Implanted Devices Includes: Current Devices No Medical Equipment Recorded Medications Administered Includes: Administered Medications from this encounter No Administered Medications Recorded Results Includes: Results discussed during this encounter No Results Recorded For Specified Dates History of Present Illness Includes: History of Present Illness from this encounter No History of Present Illness Recorded Social History No Social History Recorded - Smoking Status Unknown Medical History Includes: Medical History addressed during this encounter No Medical History Recorded Family History Includes: Family History addressed during this encounter No Family History Recorded Review of Systems Includes: Review of Systems from this encounter No Review of Systems Recorded Mental Status Includes: Mental Status from this encounter No Mental Status Recorded Functional Status Includes: Functional Status from this encounter No Functional Status Recorded Physical Exam Includes: Physical Exam from this encounter No Physical Exam Recorded Clinical Notes Includes: Clinical Notes from this encounter No Clinical Notes Recorded
--- OUTSIDE RECORDS SUMMARY | 2025-01-27 09:38 | XMS_ITS ---
Author Organization [facility] Address [address] [place] [address] Phone Care Team Providers Care Recorder Helper Gravity Prospecting Name Role Phone Unavailable Unavailable Unavailable Plan of Treatment No Plan of Treatment Recorded Assessments Includes: Assessments for all patient encounters No Assessments Recorded Medical Equipment - Implanted Devices Includes: Current and historical Devices No Medical Equipment Recorded Medications Administered Includes: Administered Medications in patient's chart No Administered Medications Recorded Results Includes: Results from 01/28/2024 through 01/27/2025 No Results Recorded For Specified Dates History of Present Illness History of Present Illness not supported for this document type No History of Present Illness Recorded Social History No Social History Recorded - Smoking Status Unknown Medical History Includes: Medical History in patient's chart No Medical History Recorded Family History Includes: Family History in patient's chart No Family History Recorded Review of Systems Review of Systems not supported for this document type No Review of Systems Recorded Mental Status No Mental Status Recorded Functional Status No Functional Status Recorded Physical Exam Physical Exam not supported for this document type No Physical Exam Recorded Clinical Notes Includes: Signed Clinical Notes starting from 12/08/2022 No Clinical Notes Recorded
--- OUTSIDE RECORDS SUMMARY | 2025-01-27 09:38 | XMS_ITS | Clinical Summary ---
Author Organization [facility] Address [address] [place] [address] Phone Care Team Providers Care Wood Borer Name Role Phone Unavailable Unavailable Unavailable Reason for Visit and Chief Complaint NEW PATIENT VISIT Plan of Treatment No Plan of [...] from this encounter No Physical Exam Recorded Encounters Encounter Provider Location Date Check-In Time Check- Out Time Diagnosis NEW PATIENT VISIT [facility] 1:30PM 11:59PM Clinical Notes Includes: Clinical Notes from this encounter No Clinical Notes Recorded
--- OUTSIDE RECORDS SUMMARY | 2025-01-27 09:39 | XMS_ITS | Clinical Summary ---
Author Organization [facility] Address [address] [place] [address] Phone Care Team Providers Care Motor Route Carrier Name Role Phone Unavailable Unavailable Unavailable Reason [...] Date Check-In Time Check- Out Time Diagnosis GENERAL OFFICE VISIT [facility] 8 3:45PM 11:59PM Clinical Notes Includes: Clinical Notes from this encounter No Clinical Notes Recorded
--- OUTSIDE RECORDS SUMMARY | 2025-01-27 09:39 | XMS_ITS ---
Author Organization Unknown Address [address] [place] [phone] Phone Care Team Providers Care Computer Console Operator Name Role Phone MIKY BRIAN Attending Unavailable NO PCP Primary Unavailable Immunization Immunization Date Status Additional Notes Code Code System COVID-19 vaccine, vector-nr, rS-Ad26, PF, 0.5 mL 01/22/2021 Completed 212 CVX Social History Type Status Start Date End Date Code Code Syst em Smoking History Never smoker (Never Smoked) 316230682 SNOMED CT Sex Male Medications Medication Start Date End Date Route Frequency Dose Code Code System Medication Instructions Home Meds Omeprazole 20MG Oral Capsule, Delayed Release 03/21/2017 Unknown ORAL ONCE A DAY 1 CAPSULE 967137 RxNorm TAKE 1 CAPSULE ORAL ONCE A [...] Code System No Known Drug Allergies Active 884663637 SNOMED-CT Plan of Treatment US Echo With Color (02989) 04/17/2024 Encounters Encounter Diagnosis Start Date Code Code Sys tem 03/06/2024 [id number] SNOMED-CT Personal Care Team Section Performer Name Performer Role Active Date Inactive Benigno Garcia PCP - Primary care physician 2024-03-06 2024-03-06 ANJELICA JOHNSTON PCP - Primary care physician 2024-03-21 0
[2025-01-27 09:49] LABS: Alanine Aminotransferase 13 U/L (16-63); Albumin Level 3.6 g/dL (3.4-5.0); Alkaline Phosphatase 90 U/L (46-116); Anion Gap 6 mmol/L (4-12); Aspartate Amino Transferase 14 U/L (15-37); Bilirubin,Total 0.5 mg/dL (0.00-1.00); Blood Urea Nitrogen 35 mg/dL (7-18); Carbon Dioxide 29 mmol/L (21-32); Chloride 106 mmol/L (98-108); Cholesterol 156 mg/dL (0-200); Estimated Glomerular Filt Rate 41; Glucose 100 mg/dL (70-99); HDL Direct 52 mg/dL (40-60); LDL Cholesterol Calculated 86 mg/dL (<130); Osmolality Calculated 300 mOsm/kg (285-295); Potassium 4.3 mmol/L (3.5-5.1); Sodium 141 mmol/L (136-145); Total Protein 7.1 g/dL (6.4-8.2); Triglycerides 89 mg/dL (0-150); Troponin I 16.4 ng/L (0.00-60.4)
[2025-01-27 10:21] LABS: Thyroid Stimulating Hormone Reflex 2.17 u/IU/mL (0.36-3.74)
== END 2025-01-27 09:00 | disposition home or self-care (01) ==
LOC: CHSLAB 09:01
PROVIDERS: PCP Family Medicine; Visit Provider Family Medicine
DX: R55 Syncope and collapse (principal); E03.9 Hypothyroidism, unspecified; I50.20 Unspecified systolic (congestive) heart failure
CPT/HCPCS: 36415; 80053; 80061; 84443; 84484; 85025

== ENCOUNTER 2025-03-11 09:06 | Outpatient (CLI) | payer MEDICARE, SELFPAY ==
--- OUTSIDE RECORDS SUMMARY | 2025-03-11 09:54 | XMS_ITS | Clinical Summary ---
Author Organization [facility] Address [address] [place] [address] Care Team Providers Care Veneer Trimmer Name Role Phone Yevgeniy Saeed DO Primary Care Provider [phone] Allergies No known active allergies Medications nitroglycerin [...] Nonrheumatic mitral valve regurgitation Take 1 tablet by mouth once daily 90 tablet 5 Active Active Problems Problem Noted Date Diagnosed Date White coat syndrome with hypertension 12/11/2022 Stroke (cerebrum) ([facility]) 04/22/2021 CVA (cerebral vascular accident) ([facility] HHS/HC C) 04/22/2021 Mitral valve insufficiency 02/03/2019 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/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 placement 2017 STEMI (ST elevation myocardi al infarction) ([facility]) 05/27/2018 Hypertension Hyperlipidemia Resolved Problems Problem Noted Date Diagnosed Date Resolved Date LV dysfunction 10/27/2019 08/04/2020 Encounters Date Type Department Care Team Description 03/04/2025 Telephone [facility] [address] [place] [address] Haleigh Sal MD Appointment Reminder 03/04/2025 Travel 03/02/2025 Orders Only [facility] [address] [place] [address] Haleigh Sal MD from Last 3 Months Family History Medical History Relation Comments No [...] 03/07/2024 2:14 PM CDT Plan of Treatment Health Maintenance Due Date Last Done Comments ASCVD Statin 1935 DTaP, Tdap and Td Vaccines ( 1 - Tdap) 1954 Pneumococcal Vaccine: 50+ Years (1 of 2 - PCV) 1954 Zoster Vaccines (1 of 2) 1985 Annual Medicare Wellness Visit 2000 RSV Immunization or 60+ Years (1 - 1-dose 75+ series) 2010 ASCVD LDL 04/23/2022 04/23/2021, 10/13/2019, 05/28/2018 COVID-19 Vaccine (2 - 2023-2 5 season) 2024 01/22/2021 Meningococcal B Vaccine Aged Out No l onger eligible based on patient's age to complete this topic Meningococcal Vaccine Aged Out No apoorva alena eligible based on patient's age to complete this topic RSV Immunizations Under 20 Months Aged Out No longer eligible b ased on patient's age to complete this topic Medical Devices Implanted Type Area Licensed Electrician Device Identifier Shelf Expiration Date Model / Serial / Lot Stent Coronary 38mm 3.5mm - [id number] Implanted:2017 at [facility] (Quantity not on file) Stent Coronary [employer] [id number] Procedures Procedure Name Priority Date/Time Associated Diagnosis Comments LIPID PANEL Routine 04/23/2021 5:06 AM CDT from Last 3 Months or Most Recently Relevant to Health Maintenance Results * LIPID PANEL (04/23/2021 5:06 AM CDT) CHOLESTEROL 119 MG/DL 04/23/2021 10:48 AM CDT [facility] Comment:DESIRABLE: <200 TRIGLYCERIDES 49 MG/DL 04/23/2021 10:48 AM CDT [facility] Comment:<150 NORMAL HDL 50 >39 MG/DL 04/23/2021 10:48 AM CDT [facility] LDL (CALCULATED) 59 MG/DL 04/23/20 21 10:48 AM CDT [facility] Comment:<100 OPTIMAL VLDL CALCULATION 10 MG/DL 04/23/20 21 10:48 AM CDT [facility] Comment:REFERENCE RANGE NOT ESTABLISHED CHOL/HDL RATIO 2.4 04/23/2021 10:48 AM CDT [facility] Comment:REFERENCE RANGE NOT ESTABLISHED LDL/HDL 1.2 04/23/2021 10:48 AM CDT [facility] Comment:REFERENCE RANGE NOT ESTABLISHED NON HDL CHOLESTEROL 69 MG/DL 04/23/2021 10:48 AM CDT [facility] Comment:REFERENCE RANGE NOT ESTABLISHED 04/23/2021 5:06 AM CDT Shai Knutson MD LABORATORY Final Resul t Performing Organization Address City/State/[facility] Co de Phone Number [facility] [address] [place] [address], [phone] from Last 3 Months or Most Recently Relevant to Health Maintenance Insurance [facility] Advance Directives * Full Code (Latest Code Status on File) Date Activated Date Inactivated Comments 04/22/2021 6:06 PM 04/23/2021 9:02 PM * Full Code Date Activated Date Inactivated Comments 05/27/2018 9:38 PM 05/29/2018 2:09 PM Care Teams Veneer Trimmer Relationship Specialty Start Date End Date Yevgeniy Saeed DO [address] [place] [address] PCP - General FAMILY PRACTICE 08/04/20
--- OUTSIDE RECORDS SUMMARY | 2025-03-11 09:54 | XMS_ITS | Encounter Summary ---
Author Organization [facility] Address [address] [place] [address] Care Team Providers Care Chemical Lab Technician Name Role Phone Claudia Martinez APRN INSTRUMENT ASSEMBLER-C Unavailable Yevgeniy Saeed DO Primary Care Provider [phone] Garcia Arnett MD Unavailable Unavailable Milka Mohamud MD Unavailable UnavailHaleigh Pino MD Unavailable Encounter Details Date Type Department Care Team (Late st Contact Info) Description 04/27/2021 Hospital Follow-up Call [facility] [address] [place] [address] Claudia Merritt, RN Social History [...] Date Author Status No 04/22/2021 6:19 PM KRISST Silvia Hamilton RN Active documented in this encounter Plan of Treatment Not on file documented as of this encounter Visit Diagnoses Not on filedocumented in this encounter Care Teams Chemical Lab Technician Relationship Specialty Start Date End Date Yevgeniy Saeed DO [address] [place] [address] PCP - General FAMILY PRACTICE 08/04/20 Claudia Martinez APRN, INSTRUMENT ASSEMBLER-C 9 [facility] [address] [place] [address] Ragland Raimann Machine Operator NURSE PRACTITIONER 06/06/18 03/04/25 Garcia Arnett MD [address] [place] [id number] Ragland Raimann Machine Operator INTERVENTIONAL CARDIOLOGY 08/13/20 09/02/23 Milka Mohamud MD [address] [place] [id number] Consulting Physician CARDIOVASCULAR DISEASE 09/03/23 Haleigh Sal MD [address] [place] [id number] Consulting Physician CARDIOVASCULAR DISEASE 03/02/25 documented as of this encounter
--- OUTSIDE RECORDS SUMMARY | 2025-03-11 09:54 | XMS_ITS ---
Author Organization Unknown Address [address] [place] [phone] Phone Care Team Providers Care Cognos Bi Administrator Name Role Phone MIKY BRIAN Attending Unavailable PRESTON DEJESUS Primary Unavailable Immunization [...] em Smoking History Never smoker (Never Smoked) 637413455 SNOMED CT Sex Male Medications Medication Start Date End Date Route Frequency Dose Code Code System Medication Instructions Home Meds Omeprazole 20MG Oral Capsule, Delayed Release 03/21/2017 Unknown ORAL ONCE A DAY 1 CAPSULE 866719 RxNorm TAKE 1 CAPSULE ORAL ONCE A [...] Code System No Known Drug Allergies Active 343088100 SNOMED-CT Plan of Treatment US Echo With Color (59792) 04/17/2024 Encounters Encounter Diagnosis Start Date Code Code Sys tem Mitral valve regurgitation 04/17/2024 73850662 S NOMED-CT Personal Care Team Section Performer Name Performer Role Active Date Inactive Benigno Garcia PCP - Primary care physician 2024-03-06 2024-03-06 ANJELICA JOHNSTON PCP - Primary care physician 2024-03-21 0 Imaging Narrative Notes [facility] 04/21/2024 10:28 [place] [id number] [place], [place] [address] RADIOLOGY REPORT Patient Number: [id number] Patient Name: MARI MCKINNON Type: O/P MR Number: [id number] : 1935 Age: 88 Sex: M Room #: Admit Date: 04/17/24 Discharge Date 04/17/24 Ordering Physician: MIKY BRIAN Family Physician: PRESTON Gamez Physician: X-Ray Number : [id number] US ECHO W/ COLOR 96000 COMPLETE:04/17/24 14:45 APC [id number] (REASON-ECHO COMPLTE: MVR See Scanned Image Attachment for Report Dictated By: Sary Initials: BG [place] Date: 04/21/24 10:28 <<REPDIST>>
--- OUTSIDE RECORDS SUMMARY | 2025-03-11 09:54 | XMS_ITS ---
Author Organization [facility] Address [address] [place] [address] Phone Care Team Providers Care Poultry Processing Supervisor Name Role Phone Unavailable Unavailable Unavailable Plan of Treatment No Plan of Treatment Recorded Assessments Includes: Assessments for all patient encounters No Assessments Recorded Medical Equipment - Implanted Devices Includes: Current and historical Devices No Medical Equipment Recorded Medications Administered Includes: Administered Medications in patient's chart No Administered Medications Recorded Results Includes: Results from 03/11/2024 through 03/11/2025 No Results Recorded For Specified Dates History [...]
--- OUTSIDE RECORDS SUMMARY | 2025-03-11 09:54 | XMS_ITS ---
Care Plan - [facility] Created on: March 11, 2025 LUAN GUERRA : 1935 Sex: Male Author Organization [facility] Address [address] [place] [address] Phone Care Team Providers Care Reexaminer Name Role Phone Unavailable Unavailable Unavailable
--- OUTSIDE RECORDS SUMMARY | 2025-03-11 09:54 | XMS_ITS | Clinical Summary ---
Author Organization [facility] Address [address] [place] [address] Phone Care Team Providers Care Radar Systems Engineer Name Role Phone Unavailable Unavailable Unavailable Reason [...]
--- OUTSIDE RECORDS SUMMARY | 2025-03-11 09:54 | XMS_ITS | Clinical Summary ---
Author Organization [facility] Address [address] [place] [address] Phone Care Team Providers Care Tip Inserter Name Role Phone Unavailable Unavailable Unavailable Reason [...]
--- OUTSIDE RECORDS SUMMARY | 2025-03-11 09:55 | XMS_ITS ---
Author Organization Unknown Address [address] [place] [phone] Phone Care Team Providers Care Executive Steward Name Role Phone MIKY BRIAN Attending Unavailable NO PCP Primary Unavailable Immunization Immunization Date Status Additional Notes Code Code System COVID-19 vaccine, vector-nr, rS-Ad26, PF, 0.5 mL 01/22/2021 Completed 212 CVX Social History Type Status Start Date End Date Code Code Syst em Smoking History Never smoker (Never Smoked) 315665176 SNOMED CT Sex Male Medications Medication Start Date End Date Route Frequency Dose Code Code System Medication Instructions Home Meds Omeprazole 20MG Oral Capsule, Delayed Release 03/21/2017 Unknown ORAL ONCE A DAY 1 CAPSULE 533546 RxNorm TAKE 1 CAPSULE ORAL ONCE A [...] Code System No Known Drug Allergies Active 604392897 SNOMED-CT Plan of Treatment US Echo With Color (61750) 04/17/2024 Encounters Encounter Diagnosis Start Date Code Code Sys tem 03/06/2024 [id number] SNOMED-CT Personal Care Team Section Performer Name Performer Role Active Date Inactive Benigno Garcia PCP - Primary care physician 2024-03-06 2024-03-06 ANJELICA JOHNSTON PCP - Primary care physician 2024-03-21 0
--- OUTSIDE RECORDS SUMMARY | 2025-03-11 09:55 | XMS_ITS | Clinical Summary ---
Author Organization [facility] Address [address] [place] [address] Phone Care Team Providers Care Assistant Associate Professor Name Role Phone Unavailable Unavailable Unavailable Reason [...]
--- NOTE | 2025-03-13 15:09 | WPDHOLTEREM ---
Holter/Event Monitor Holter/Event Monitor Date of procedure: 03/11/25 Holter/Event Procedure: 48 Hr Holter Monitor Indications: Dizziness Conclusion: 1. 48 hour holter holter monitor on 03/11/25. 2. Predominant rhythm is sinus rhythm. HR range 53-117 bpm; average HR 67 bpm. 3. There are 200 premature supraventricular complexes and 8 supraventricular couplets. No supraventricular tachycardia. 4. There are 6,036 premature ventricular complexes, 609 ventricular couplets, 8 ventricular triplets, 31 ventricular bigeminy, and 36 ventricular trigeminy. There is 1 short ventricular run at 95 bpm lasting 4 beats. No ventricular tachycardia. 5. No significant pauses greater than 2 seconds. 6. No symptoms available for correlation.
== END 2025-03-11 09:07 | disposition home or self-care (01) ==
LOC: CHSCARD 09:07
PROVIDERS: PCP Family Medicine; Visit Provider Family Medicine
DX: R42 Dizziness and giddiness (principal)
CPT/HCPCS: 93225; 93226